=== PATIENT | male | born 1990 | race Caucasian/White ===

== ENCOUNTER 2024-01-17 12:15 | Emergency (ER) | payer BC ==
--- NOTE | 2024-01-17 12:55 | ED ---
General Adult HPI - General Chief complaint: Extremity Injury, Upper Stated complaint: L hand injury Time Seen by Provider: 01/17/24 12:22 Source: patient Mode of arrival: ambulatory Limitations: no limitations - History of Present Illness Initial comments: Dictation was produced using [employer] dictation software. please excuse any grammatical, word or spelling errors. 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 He had his hand on the ground when a piece of plywood crushed his second and third digit DIP. Patient complaining of pain requesting x-ray. The ROS documented in this emergency department record has been reviewed and confirmed by me. Those systems with pertinent positive or negative responses have been documented in the HPI. All other systems are other negative and/or noncontributory. - Related Data Allergies Allergy/AdvReac Type Severity Reaction Status Date / Time No Known Allergies Allergy Verified 01/17/24 12:23 Review of Systems ROS Statement: Those systems with pertinent positive or pertinent negative responses have been documented in the HPI. ROS Other: All systems not noted in ROS Statement are negative. Past Medical History Past Medical History: No Reported History History of Any Multi-Drug Resistant Organisms: None Reported Past Surgical History: No Surgical Hx Reported, Orthopedic Surgery Additional Past Surgical History / Comment(s): C5, C6 disc replacement Past Psychological History: ADD/ADHD Smoking Status: Never smoker Past Alcohol Use History: None Reported Past Drug Use History: None Reported General Exam - General Exam Comments Initial Comments: General: Well-appearing, nontoxic, no acute distress. Head: Normocephalic, atraumatic Eyes: PERRLA, EOMI ENT: Airway patent Chest: Nonlabored breathing Skin: No visual rash, normal skin tone Neuro: Alert and oriented 3 Musculoskeletal: No gross abnormalities Left hand: Ecchymosis to the tip of the left second and third digit Limitations: no limitations Course Vital Signs 01/17/24 12:18 Temperature 98.5 F Pulse Rate 61 Respiratory 18 Rate Blood Pressure 165/106 O2 Sat by Pulse 97 Oximetry Medical Decision Making - Medical Decision Making Was pt. sent in by a medical professional or institution (, PA, CIRCUIT BOARD REPAIR TECHNICIAN, urgent care, hospital, or shelter...) When possible be specific @ -No Did you speak to anyone other than the patient for history (EMS, parent, family, police, friend...)? What history was obtained from this source @ -No Did you review nursing and triage notes (agree or disagree)? Why? @ -I reviewed and agree with nursing and triage notes Were old charts reviewed (outside hosp., previous admission, EMS record, old EK G, old radiological studies, urgent care reports/EKG's, shelter records)? Report findings @ -No old charts were reviewed Differential Diagnosis (chest pain, altered mental status, abdominal pain women, abdominal pain men, vaginal bleeding, musculoskeletal, weakness, fever, dyspnea, syncope, headache, dizziness, GI bleed, back pain, seizure, CVA, palpatations, mental health)? @ -Not applicable EKG interpreted by me (3pts min.). @ -None done X-rays interpreted by me (1pt min.). @ -Left hand x-ray shows fracture to the tuft of the left third digit CT interpreted by me (1pt min.). @ -None done U/S interpreted by me (1pt. min.). @ -None done What testing was considered but not performed or refused? (CT, X-rays, U/S, labs)? Why? @ -None What meds were considered but not given or refused? Why? @ -None Did you discuss the management of the patient with other professionals (professionals i.e. , PA, CIRCUIT BOARD REPAIR TECHNICIAN, lab, RT, psych nurse, social staff worker, controller coal or ore, teacher, global chief experience officer, test case developer)? Give summary @ -No Was smoking cessation discussed for >3mins.? @ -No Was critical care preformed (if so, how long)? @ -No Were there social determinants of health that impacted care today? How? (Homelessness, low income, unemployed, alcoholism, drug addiction, transportation, low edu. Level, literacy, decrease access to med. care, fpc, rehab)? @ -No Was there de-escalation of care discussed even if they declined (Discuss DNR or withdrawal of care, Hospice)? DNR status @ -No What co-morbidities impacted this encounter? (DM, HTN, Smoking, COPD, CAD, Cancer, CVA, ARF, Chemo, Hep., AIDS, mental health diagnosis, sleep apnea, morbid obesity)? @ -None Was patient admitted / discharged? Hospital course, mention meds given and route, prescriptions, significant lab abnormalities, going to OR and other pertinent info. @ -33-year-old male presents with crush injury to the left second and third digit. Vital signs stable. Fingers are bruised. X-ray shows fracture to the tuft of the third digit. Patient placed a third digit and splint. Patient discharged follow-up with primary care doctor. Undiagnosed new problem with uncertain prognosis? @ -No Drug Therapy requiring intensive monitoring for toxicity (Heparin, Nitro, Insulin, Cardizem)? @ -No Were any procedures done? @ -No Diagnosis/symptom? Acute, or Chronic, or Acute on Chronic? Uncomplicated (without systemic symptoms) or Complicated (systemic symptoms)? @ -Finger fracture Side effects of treatment? @ -No Exacerbation, Progression, or Severe Exacerbation? @ -No Poses a threat to life or bodily function? How? (Chest pain, [place], [place], pneumonia, PE, COPD, DKA, ARF, appy, cholecystitis, CVA, Diverticulitis, Homicidal, Suicidal, threat to staff... and all critical care pts) @ -yes Disposition Clinical Impression: Finger fracture Disposition: HOME SELF-CARE Condition: Fair Instructions (If sedation given, give patient instructions): Finger Fracture (ED) Is patient prescribed a controlled substance at d/c from ED?: No Referrals: None,Stated [Primary Care Provider] - 1-2 days Time of Disposition: 13:57
--- NOTE | 2024-01-17 13:50 | XR ---
EXAMINATION TYPE: XR hand complete 3 views LT DATE OF EXAM: 01/17/2024 Comparison: None Clinical History: 33-year-old male 2nd and 3rd digit crush Findings: Subtle nondisplaced tuft fracture of the third distal phalanx with associated soft tissue swelling. N o additional acute fracture, subluxation or dislocation is seen. Impression: Nondisplaced tuft fracture third distal phalanx with soft tissue swelling.
[2024-01-17 15:09] VITALS: BP 144/89; PULSE 56; RESP 16; TEMP 98.3
== END 2024-01-17 14:34 | disposition home or self-care (01) ==
LOC: EC 12:15
DX: S62.605A Fracture of unspecified phalanx of left ring finger, initial encounter for closed fracture (principal); W23.0XXA Caught, crushed, jammed, or pinched between moving objects, initial encounter
CPT/HCPCS: 99283